=== PATIENT | female | born 1970 | race Hispanic/Latino ===

== ENCOUNTER 2018-11-26 19:30 | Emergency (ER) | payer SELFPAY ==
[2018-11-26 20:58] LABS: BASOPHILS % (AUTO) 0.6 % (0.0-5.0); EOSINOPHILS % (AUTO) 0.9 % (0.0-8.0); LYMPHOCYTES % (AUTO) 23.3 % (21.0-51.0); MEAN CORPUSCULAR HEMOGLOBIN 25.8 pg (27.0-33.0); MEAN CORPUSCULAR HGB CONC 33.1 g/dL (32.0-36.0); MEAN CORPUSCULAR VOLUME 78.2 fL (79-99); MONOCYTES % (AUTO) 5.5 % (3.0-13.0); NEUTROPHILS % (AUTO) 69.7 % (40.0-77.0); PLATELET COUNT (AUTO) 303 K/uL (130-400); RED BLOOD CELL COUNT(AUTO) 5.24 MIL/uL (4.00-5.50); RED CELL DISTRIBUTION WIDTH 16.5 % (11.0-15.5); WHITE BLOOD COUNT (AUTO) 11.1 K/uL (4.8-10.8)
[2018-11-26] MEDS ORDERED: ONDANSETRON HCL 4 MG/2 ML VIAL ONE (20:58)
[2018-11-26 21:13] LABS: CARBON DIOXIDE 23 mmol/L (21-32); CHLORIDE 102 mmol/L (101-111); CREATININE 0.9 mg/dL (0.5-1.5); GLOMERULAR FILTR. RATE CALC 71 mL/min (>60); GLUCOSE,RANDOM 393 mg/dL (70-105); POTASSIUM 4.1 mmol/L (3.5-5.1); SODIUM SERUM 137 mmol/L (136-145); UREA NITROGEN, BLOOD 20 mg/dL (7-18)
[2018-11-26 21:21] LABS: ALANINE AMINOTRANSFERASE 15 U/L (12-78); ALBUMIN 3.3 g/dL (3.5-5.0); ASPARTATE AMINOTRANSFERASE 11 U/L (10-37); BILIRUBIN,DIRECT < 0.1 mg/dL (0.0-0.3); BILIRUBIN,TOTAL 0.3 mg/dL (0.2-1.0); LIPASE 141 U/L (114-286); TOTAL PROTEIN, SERUM 8.1 g/dL (6.0-8.3)
[2018-11-26 21:44] LABS: ABG OXYGEN SATURATION 84.9 % (95.0-99.0); BASE EXCESS,VENOUS BLOOD GAS -3.1 (-2.0-3.0); HCO3,VENOUS BLOOD GAS 20.4 (21.0-28.0); PCO2,VENOUS BLOOD GAS 32 (32-45); PH,VENOUS BLOOD GAS 7.416 (7.350-7.450)
[2018-11-26] MEDS ORDERED: SODIUM CHLORIDE 0.9% 1000ML 1,000 ML IV ONE (21:54)
[2018-11-26] MEDS ORDERED: KETOROLAC TROMETHAMINE 30MG/ML ONE (22:45)
[2018-11-26 23:14] LABS: APPEARANCE,URINE Clear (CLEAR); BILIRUBIN,URINE Negative (NEGATIVE); COLOR,URINE Yellow (YELLOW); GLUCOSE, URINE (UA) >=1000 mg/dL (NEGATIVE); KETONES,URINE 40 mg/dL (NEGATIVE); LEUKOCYTE ESTERASE ,URINE Trace (NEGATIVE); NITRATE,URINE Negative (NEGATIVE); OCCULT BLOOD,URINE Negative (NEGATIVE); PROTEIN,URINE Negative (NEGATIVE); UROBILINOGEN,URINE 0.2 mg/dL (0.2-1.0)
[2018-11-26 23:22] LABS: HCG,QUAL RESULT NEGATIVE (NEGATIVE)
[2018-11-26 23:30] LABS: BACTERIA,URINE None Seen /HPF (None Seen); RBC,URINE None Seen /HPF (0-1); SQUAMOUS EPITHELIAL CELL,UR Moderate /HPF (0-2)
== END 2018-11-27 01:29 | disposition home or self-care (01) ==
LOC: EDH 19:30
DX: E11.65 Type 2 diabetes mellitus with hyperglycemia (principal); R10.84 Generalized abdominal pain; R11.2 Nausea with vomiting, unspecified; J45.909 Unspecified asthma, uncomplicated
CPT/HCPCS: 36415; 36600; 80048; 80076; 81001; 81025; 82009; 82803; 82948; 83690; 85025; 96361; 96374; 96375; 99283; J1885; J2405; J7030

== ENCOUNTER 2019-01-07 18:49 | Emergency (ER) | payer SELFPAY ==
[2019-01-07 19:57] LABS: BASOPHILS % (AUTO) 0.8 % (0.0-5.0); EOSINOPHILS % (AUTO) 0.9 % (0.0-8.0); LYMPHOCYTES % (AUTO) 14.7 % (21.0-51.0); MEAN CORPUSCULAR HEMOGLOBIN 25.9 pg (27.0-33.0); MEAN CORPUSCULAR HGB CONC 32.9 g/dL (32.0-36.0); MEAN CORPUSCULAR VOLUME 78.8 fL (79-99); MONOCYTES % (AUTO) 7.4 % (3.0-13.0); NEUTROPHILS % (AUTO) 76.2 % (40.0-77.0); PLATELET COUNT (AUTO) 237 K/uL (130-400); RED BLOOD CELL COUNT(AUTO) 4.56 MIL/uL (4.00-5.50); RED CELL DISTRIBUTION WIDTH 15.8 % (11.0-15.5); WHITE BLOOD COUNT (AUTO) 6.7 K/uL (4.8-10.8)
[2019-01-07] MEDS ORDERED: GUAIFENESIN-DM 200/20 MG 10 ML ONE (19:58)
[2019-01-07] MEDS ORDERED: BENZONATATE 100 MG CAPSULE PO ONE (19:58)
[2019-01-07 20:17] LABS: CARBON DIOXIDE 24 mmol/L (21-32); CHLORIDE 99 mmol/L (101-111); CREATININE 0.6 mg/dL (0.5-1.5); GLOMERULAR FILTR. RATE CALC 114 mL/min (>60); GLUCOSE,RANDOM 281 mg/dL (70-105); POTASSIUM 3.8 mmol/L (3.5-5.1); SODIUM SERUM 136 mmol/L (136-145); UREA NITROGEN, BLOOD 10 mg/dL (7-18)
[2019-01-07 20:19] LABS: INR 0.9 (0.85-1.15); PARTIAL THROMBOPLASTIN TIME 30.2 SEC (26.3-35.5); PROTHROMBIN TIME 9.5 SEC (9.6-11.6)
[2019-01-07 20:23] LABS: APPEARANCE,URINE Clear (CLEAR); BILIRUBIN,URINE Negative (NEGATIVE); COLOR,URINE Yellow (YELLOW); GLUCOSE, URINE (UA) >=1000 mg/dL (NEGATIVE); KETONES,URINE >=160 mg/dL (NEGATIVE); LEUKOCYTE ESTERASE ,URINE Negative (NEGATIVE); NITRATE,URINE Negative (NEGATIVE); OCCULT BLOOD,URINE Negative (NEGATIVE); PH,URINE 5.5 (5.0-8.0); PROTEIN,URINE POS 1+ (NEGATIVE)
[2019-01-07 20:31] LABS: ALANINE AMINOTRANSFERASE 22 U/L (12-78); ALBUMIN 3.4 g/dL (3.5-5.0); ASPARTATE AMINOTRANSFERASE 24 U/L (10-37); BILIRUBIN,TOTAL 0.4 mg/dL (0.2-1.0); CREATINE KINASE, TOTAL 73 U/L (21-232); MYOGLOBIN 22 ng/mL (10-92); TOTAL PROTEIN, SERUM 7.7 g/dL (6.0-8.3); TROPONIN I < 0.04 ng/mL (0.00-0.06)
[2019-01-07 20:39] LABS: YEAST,URINE BUDDING Few /HPF (None Seen)
[2019-01-07 20:41] LABS: BACTERIA,URINE Moderate /HPF (None Seen); MUCUS,URINE Few LPF (None Seen); RBC,URINE 0-1 /HPF (0-1)
[2019-01-07] MEDS ORDERED: CEFTRIAXONE SODIUM 1 GM ONE (21:31)
[2019-01-07] MEDS ORDERED: AZITHROMYCIN 250 MG TABLET PO ONE (21:32)
[2019-01-07] MEDS ORDERED: METHYLPREDNISOLONE SOD SUCC 125MG/2ML VIAL ONE (22:24)
== END 2019-01-07 22:40 | disposition home or self-care (01) ==
LOC: EDH 18:49
DX: J20.9 Acute bronchitis, unspecified (principal); J45.909 Unspecified asthma, uncomplicated; R79.1 Abnormal coagulation profile; E11.9 Type 2 diabetes mellitus without complications
CPT/HCPCS: 36415; 71045; 80053; 81001; 82550; 83605; 83874; 84484; 85025; 85610; 85730; 87040 ×2; 87077 ×2; 87088; 87186 ×2; 87804 ×2; 93005; 96361; 96374; 96375; 99284; J0696; J2930

== ENCOUNTER 2022-11-01 12:43 | Emergency (ER) | payer OTHER ==
[~2022-11-01] VITALS: Ht 154.9 cm; Wt 94.3 kg
[2022-11-01 15:10] LABS: BASOPHILS % (AUTO) 0.3 % (0.0-5.0); EOSINOPHILS % (AUTO) 0.1 % (0.0-8.0); HEMATOCRIT 46.5 % (36-48); LYMPHOCYTES % (AUTO) 14.7 % (21.0-51.0); MEAN CORPUSCULAR HEMOGLOBIN 29.9 pg (27.0-33.0); MEAN CORPUSCULAR HGB CONC 35.1 g/dL (32.0-36.0); MEAN CORPUSCULAR VOLUME 85.2 fL (79-99); NEUTROPHILS % (AUTO) 80.5 % (40.0-77.0); PLATELET COUNT (AUTO) 353 K/uL (130-400); RED BLOOD CELL COUNT(AUTO) 5.46 MIL/uL (4.00-5.50); RED CELL DISTRIBUTION WIDTH 12.4 % (11.0-15.5); WHITE BLOOD COUNT (AUTO) 14.9 K/uL (4.8-10.8)
[2022-11-01 15:42] LABS: CREATININE 1.6 mg/dL (0.5-1.5); POTASSIUM 3.6 mmol/L (3.5-5.1)
[2022-11-01 15:47] LABS: ALBUMIN 3.7 g/dL (3.5-5.0); TOTAL PROTEIN, SERUM 8.7 g/dL (6.0-8.3)
[2022-11-01] MEDS ORDERED: CEPH500B PO (16:22)
[2022-11-01] MEDS ORDERED: ACYC200C24 PO (16:22)
[2022-11-01 16:35] VITALS: BP 155/70
== END 2022-11-01 16:36 | disposition home or self-care (01) ==
LOC: EDH 12:43
DX: A60.00 Herpesviral infection of urogenital system, unspecified (principal); E11.9 Type 2 diabetes mellitus without complications
CPT/HCPCS: 36415; 80053; 85025

== ENCOUNTER 2023-12-21 11:37 | Emergency (ER) | payer BC ==
[~2023-12-21] VITALS: Ht 154.9 cm; Wt 89.8 kg
[~2023-12-21 11:37] MED LIST: ACYC200C24 PO; CEPH500B PO
[2023-12-21 13:38] LABS: BASOPHILS # (AUTO) 0.04 K/uL (0.00-0.20); BASOPHILS % (AUTO) 0.4 % (0.0-5.0); EOSINOPHILS # (AUTO) 0.08 K/uL (0.00-0.70); EOSINOPHILS % (AUTO) 0.8 % (0.0-8.0); HEMATOCRIT 40.3 % (36-48); IMMATURE GRANULOCYTE ABSOLUTE 0.02 K/uL (0-1); LYMPHOCYTES # (AUTO) 2.9 K/uL (1.0-4.8); LYMPHOCYTES % (AUTO) 30.3 % (21.0-51.0); MEAN CORPUSCULAR HEMOGLOBIN 30.1 pg (27.0-33.0); MEAN CORPUSCULAR VOLUME 85.9 fL (79-99); MONOCYTES # (AUTO) 0.5 K/uL (0.1-1.0); MONOCYTES % (AUTO) 4.8 % (3.0-13.0); NEUTROPHILS % (AUTO) 63.5 % (40.0-77.0); PLATELET COUNT (AUTO) 248 K/uL (130-400); RED BLOOD CELL COUNT(AUTO) 4.69 MIL/uL (4.00-5.50); RED CELL DISTRIBUTION WIDTH 13.3 % (11.0-15.5); WHITE BLOOD COUNT (AUTO) 9.5 K/uL (4.8-10.8)
[2023-12-21 13:47] LABS: CREATININE 0.8 mg/dL (0.5-1.5); POTASSIUM 4.4 mmol/L (3.5-5.1)
[2023-12-21 13:53] LABS: ALBUMIN 3.2 g/dL (3.5-5.0); BILIRUBIN,TOTAL 0.4 mg/dL (0.2-1.0); TOTAL PROTEIN, SERUM 7.5 g/dL (6.0-8.3)
[2023-12-21 13:55] LABS: APPEARANCE,URINE CLEAR (CLEAR); BILIRUBIN,URINE NEGATIVE (NEGATIVE); COLOR,URINE LIGHT-YELLOW (YELLOW); GLUCOSE, URINE (UA) >=1000 mg/dL (NEGATIVE); KETONES,URINE NEGATIVE (NEGATIVE); LEUKOCYTE ESTERASE ,URINE NEGATIVE Leu/uL (NEGATIVE); NITRATE,URINE NEGATIVE (NEGATIVE); OCCULT BLOOD,URINE LARGE (NEGATIVE); PROTEIN,URINE NEGATIVE (NEGATIVE); UROBILINOGEN,URINE 0.2 mg/dL (0.2-1.0)
[2023-12-21 13:56] LABS: ADD UA MICROSCOPIC YES
[2023-12-21] MEDS: 0.9%NACL 1000ML 1,000 ML IV ONE (13:58)
[2023-12-21] MEDS: MORPHINE 2 MG SYG IVP ONE (13:58)
[2023-12-21] MEDS: ONDANSETRON 4MG INJ IVP ONE (13:58)
[2023-12-21 14:04] LABS: RBC,URINE 51-100 /HPF (0-1); SQUAMOUS EPITHELIAL CELL,UR FEW /HPF (0-2)
[2023-12-21] MEDS ORDERED: IOHEXOL-350 75 ML VIAL IV ONE (15:18)
[2023-12-21 16:59] VITALS: BP 161/84; PULSE 66; RESP 18; O2SAT 100
[2023-12-21 17:29] LABS: INFLUENZA TYPE A Negative For Type A (NEGATIVE); INFLUENZA TYPE B Negative For Type B (NEGATIVE)
[2023-12-21 17:41] LABS: SARS-CoV-2, RNA, NAAT NEGATIVE SARS CoV-2 (NEGATIVE)
[2023-12-21] MEDS ORDERED: POLY17PO4 PO (17:45)
== END 2023-12-21 18:04 | disposition home or self-care (01) ==
LOC: EDH 11:37
DX: K59.00 Constipation, unspecified (principal); E11.9 Type 2 diabetes mellitus without complications; Z20.822 Contact with and (suspected) exposure to COVID-19; Z79.899 Other long term (current) drug therapy; Z98.890 Other specified postprocedural states
CPT/HCPCS: 99284; 74177; 96374; 87635; 96361; 96375; 80053; 83690; 85025; 87804 ×2; 81001; 36415; J2270; J7030; J2405; Q9967

== ENCOUNTER 2025-03-28 20:58 | Emergency (ER) | payer BC ==
[~2025-03-28] VITALS: Ht 154.9 cm; Wt 86.2 kg
[~2025-03-28 20:58] MED LIST changes: +POLY17PO4 PO
[2025-03-28 21:47] LABS: BASOPHILS # (AUTO) 0.04 K/uL (0.00-0.20); BASOPHILS % (AUTO) 0.5 % (0.0-5.0); EOSINOPHILS # (AUTO) 0.11 K/uL (0.00-0.70); EOSINOPHILS % (AUTO) 1.5 % (0.0-8.0); HEMATOCRIT 40.5 % (36-48); IMMATURE GRANULOCYTE ABSOLUTE 0.02 K/uL (0-1); LYMPHOCYTES # (AUTO) 2.9 K/uL (1.0-4.8); LYMPHOCYTES % (AUTO) 39.8 % (21.0-51.0); MEAN CORPUSCULAR HEMOGLOBIN 30.2 pg (27.0-33.0); MEAN CORPUSCULAR VOLUME 83.7 fL (79-99); MONOCYTES # (AUTO) 0.4 K/uL (0.1-1.0); MONOCYTES % (AUTO) 5.2 % (3.0-13.0); NEUTROPHILS # (AUTO) 3.9 K/uL (1.8-7.7); NEUTROPHILS % (AUTO) 52.7 % (40.0-77.0); PLATELET COUNT (AUTO) 261 K/uL (130-400); RED BLOOD CELL COUNT(AUTO) 4.84 MIL/uL (4.00-5.50); RED CELL DISTRIBUTION WIDTH 12.6 % (11.0-15.5); WHITE BLOOD COUNT (AUTO) 7.3 K/uL (4.8-10.8)
--- NOTE | 2025-03-28 21:49 | EKG ---
[facility] Test Date: 2025-03-28 Test Time: 21:46:52 Pat Name: SHUN MARTINO Department: ED Room: Gender: F [employer] Offbearer: [id number] : 1970 Requested By: FAYE CHAUDHARY Order Number: [id number] Reading MD: Jerome Alberto Measurements Intervals [place] Rate: 71 P: 32 PA: 140 QRS: 6 QRSD: 84 T: 5 QT: 394 QTc: 430 Interpretive Statements Sinus rhythm Probable left atrial enlargement Probable left ventricular hypertrophy Compared to ECG 01/07/2019 19:29:27 Sinus tachycardia no longer present Electronically Signed On 03-29-2025 22:16:45 CDT by Jerome Alberto Please click the below link to view image of tracing.
[2025-03-28 21:58] LABS: CREATININE 0.8 mg/dL (0.5-1.0); POTASSIUM 3.5 mmol/L (3.5-5.1)
[2025-03-28 22:13] LABS: ALBUMIN 3.5 g/dL (3.5-5.0); BILIRUBIN,DIRECT 0.2 mg/dL (0.0-0.3); BILIRUBIN,TOTAL 0.9 mg/dL (0.2-1.0); TOTAL PROTEIN, SERUM 7.9 g/dL (6.0-8.3)
[2025-03-28] MEDS: 0.9%NACL 1000ML 1,000 ML IV ONE (22:23)
[2025-03-28] MEDS: ondanSETRON 4MG INJ IVP ONE (22:23)
[2025-03-28] MEDS: PANTOPrazole 40 MG/VIAL IVP ONE (22:23)
--- NOTE | 2025-03-28 22:33 | HMCIMG ---
CT HEAD/BRAIN W/O CONTRAST HISTORY: Headaches COMPARISON: None TECHNIQUE: Multiple sequential axial images of the head were obtained from the base of the skull through vertex. Patient was not given contrast through intravenous route. FINDINGS: The ventricles and extraventricular CSF spaces are nondilated for patient's age. There is no midline shift, mass effect or herniation. No acute intracranial bleed is seen. Visualized portion of the paranasal sinuses are grossly within normal limits. IMPRESSION: 1. No acute intracranial bleed is seen. CT was performed with one or more following dose reduction techniques: automated exposure control, adjustment of the mA and kv according to patient's size, or use of a iterative reconstruction technique.
[2025-03-28 23:06] LABS: COVID19 (SARS ANTIGEN RAPID) PRESUMPTIVE NEGATIVE (NEGATIVE); INFLUENZA TYPE A Negative For Type A (NEGATIVE); INFLUENZA TYPE B Negative For Type B (NEGATIVE)
[2025-03-28] MEDS: hydrALAZine 20MG/ML VIAL IV ONE (23:10)
[2025-03-28] MEDS: guaiFENesin-coDEINE 5 ML SYRUP PO ONE (23:40)
[2025-03-29 00:18] LABS: APPEARANCE,URINE CLOUDY (CLEAR); BILIRUBIN,URINE NEGATIVE (NEGATIVE); COLOR,URINE YELLOW (YELLOW); GLUCOSE, URINE (UA) >=1000 mg/dL (NEGATIVE); KETONES,URINE 20 mg/dL (NEGATIVE); LEUKOCYTE ESTERASE ,URINE 500 Leu/uL (NEGATIVE); NITRATE,URINE NEGATIVE (NEGATIVE); PH,URINE 5.5 (5.0-8.0); PROTEIN,URINE 20 mg/dL (NEGATIVE); UROBILINOGEN,URINE 0.2 mg/dL (0.2-1.0)
[2025-03-29 00:19] LABS: ADD UA MICROSCOPIC YES
[2025-03-29 00:20] LABS: MUCUS,URINE FEW LPF (None Seen); RBC,URINE 26-50 /HPF (0-1); SQUAMOUS EPITHELIAL CELL,UR MANY /HPF (0-2); YEAST,URINE BUDDING MANY /HPF (None Seen)
[2025-03-29] MEDS: cefTRIAXone 1G VIAL IVPB ONE (00:34)
[2025-03-29] MEDS ORDERED: NITR100C4 PO (00:47)
--- NOTE | 2025-03-29 00:47 | ERN ---
ED Note History of Present Illness Stated Complaint: MULTIPLE COMPLAINTS Chief Complaint: Multiple Complaints Time Seen by MD: 21:01 Time Seen by Midlevel: 21:01 Dictation: The patient is a 54-year-old female with a history of diabetes, asthma who pres ents to the emergency department with multiple complaints. Patient reports that she has been having a chronic cough for about a month, today she started with a right upper abdominal burning sensation with nausea, nonbloody vomiting, nonbloody diarrhea. Patient also reports that she was seen here on March 16 for the same problem. Reports during that time her right eye was swollen. Patient reports that her eye swelling is getting better but she still has some droopiness to her right eye. Patient also reports right-sided headache. Denies any fevers. Reports compliant with her medication. Denies any head trauma or falls. Allergies: Coded Allergies: No Known Drug Allergies (Unverified Allergy, Unknown, 11/01/22) Home Meds Active Scripts Polyethylene Glycol 3350 (Miralax) 17 Gram Powd.pack, 17 GM PO DAILY, #5 EA Prov:PIOTR GARCIA CUSTOMER LOGISTICS MANAGER 12/21/23 Cephalexin Monohydrate (Keflex) 500 Mg Cap, 500 MG PO TID for 7 Days, #21 CAP Prov:ERYN RIOS MD 11/01/22 Acyclovir (Acyclovir) 200 Mg Capsule, 200 MG PO 5XDAY for 10 Days, #50 CAP Prov:ERYN RIOS MD 11/01/22 Past Medical History Past Medical History: Diabetes-Type II Surgical History: Other Surgical History Other: JAW Family History: Negative Social History: Negative, Lives with family History: Not Applicable RN Note Reviewed/Agreed w/PFSH: Yes Review of System Dictation Constitutional: Negative for fever,chills, and weight loss Eyes: Negative for injury, pain,redness, and discharge ENT: Negative for injury,pain or swelling Cardiovascular: Negative for chest pain, palpitations, and edema Respiratory: Negative for shortness of breath, , and wheezing, positive for cough Abdomen/GI: Negative for constipation positive for abdominal pain, nausea, vomiting, diarrhea, and Back: Negative for injury and pain : Negative for injury, bleeding and discharge MS/Extremity: Negative for injury and deformity Skin: Negative for rash, and discoloration Neuro: Negative for weakness, numbness, tingling, and seizure positive for headache Psych: Negative for suicide ideation, homicidal ideation, and hallucinations Initial Vital Sign VS Vital Signs Date Time Temp Pulse Resp B/P (MAP) Pulse Ox O2 Delivery O2 Flow Rate FiO2 03/28/25 20:59 98.4 97 20 200/119 96 Room Air 03/28/25 22:48 0 21 Physical Exam Dictation Vital Signs reviewed General Appearance: Alert, oriented x 3, no acute distress, well developed, nourished. Head and Face: non-traumatic. Eyes: PERRL, pink conjunctivas, eyelid no trauma, anterior chamber with arcus senilis. Ears: Pinnas intact and no signs of trauma or erythema ear canals clear and no discharge TM no erythema Nose: No discharge, no bleeding. Oropharynx: Mouth normal, tongue pink. pharynx clear,no erythema, tonsils no exudates, no abscesses noted, mucous membrane moist Neck: Supple, non-tender, no thyromegaly, no masses, no JVD, no bruits Breast:Deferred Chest:No tenderness, no crepitus, no paradoxical movement, no retractions Lungs:Clear, well-ventilated, symmetric, no rales, no wheezing, no rhonchi, no stridor, good breath sounds bilaterally Heart: Regular rate, regular rhythm, no murmur, no gallops Vascular: no peripheral edema, Abdomen: Soft, positive bowel sounds, nondistended, no guarding, nontender, no rebound, no masses no hepatomegaly, no splenomegaly, no Monteiro's sign, no hernias. Rectal: Deferred Genital: Deferred Neurological: Normal speech, motor function intact, sensory function intact Musculoskeletal: Neck nontender, full range of motion, back nontender, full range of motion, Extremities: nontender, full range of motion Skin: Color pink, dry, no turgor, no rash, no lacerations, no abrasions, no contusions. Lymphatic: Deferred Results (Laboratory/Radiology) Laboratory/Radiology Laboratory Tests Test 03/28/25 21:40 03/28/25 22:37 03/29/25 00:07 03/29/25 00:18 White Blood Count 7.3 K/uL (4.8-10.8) Red Blood Count 4.84 MIL/uL (4.00-5.50) Hemoglobin 14.6 g/dL (12.0-16.0) Hematocrit 40.5 % (36-48) Mean Corpuscular Volume 83.7 fL (79-99) Mean Corpuscular Hemoglobin 30.2 pg (27.0-33.0) Mean Corpuscular Hemoglobin Concent 36.0 g/dL (32.0-36.0) Red Cell Distribution Width 12.6 % (11.0-15.5) Platelet Count 261 K/uL (130-400) Mean Platelet Volume 10.9 fL (7.5-10.5) H Immature Granulocyte % (Auto) 0.3 % (0-1) Neutrophils (%) (Auto) 52.7 % (40.0-77.0) Lymphocytes (%) (Auto) 39.8 % (21.0-51.0) Monocytes (%) (Auto) 5.2 % (3.0-13.0) Eosinophils (%) (Auto) 1.5 % (0.0-8.0) Basophils (%) (Auto) 0.5 % (0.0-5.0) Neutrophils # (Auto) 3.9 K/uL (1.8-7.7) Lymphocytes # (Auto) 2.9 K/uL (1.0-4.8) Monocytes # (Auto) 0.4 K/uL (0.1-1.0) Eosinophils # (Auto) 0.11 K/uL (0.00-0.70) Basophils # (Auto) 0.04 K/uL (0.00-0.20) Absolute Immature Granulocyte (auto 0.02 K/uL (0-1) Nucleated Red Blood Cells 0.0 % (0.0-0.19) Sodium Level 138 mmol/L (136-145) Potassium Level 3.5 mmol/L (3.5-5.1) Chloride Level 105 mmol/L (101-111) Carbon Dioxide Level 25 mmol/L (21-32) Blood Urea Nitrogen 20 mg/dL (7-18) H Creatinine 0.8 mg/dL (0.5-1.0) Glomerular Filtration Rate Calc 88 mL/min (>90) Random Glucose 245 mg/dL (70-105) H Total Calcium 9.4 mg/dL (8.5-10.1) Total Bilirubin 0.9 mg/dL (0.2-1.0) Direct Bilirubin 0.2 mg/dL (0.0-0.3) Aspartate Amino Transf (AST/SGOT) 17 U/L (10-37) Alanine Aminotransferase (ALT/SGPT) 25 U/L (12-78) Alkaline Phosphatase 114 U/L (50-136) Total Creatine Kinase 34 U/L (21-232) # Troponin I High Sensitivity 6 ng/L (4-50) Total Protein 7.9 g/dL (6.0-8.3) Albumin 3.5 g/dL (3.5-5.0) Lipase 23 U/L (16-77) Influenza Type A Antigen Negative For Type A Influenza Type B Antigen Negative For Type B SARS-CoV-2 Antigen (Rapid) PRESUMPTIVE NEGATIVE Urine Color YELLOW (YELLOW) Urine Appearance CLOUDY (CLEAR) H Urine pH 5.5 (5.0-8.0) Urine Specific [place] 1.023 (1.001-1.031) Urine Protein 20 mg/dL (NEGATIVE) H Urine Glucose (UA) >=1000 mg/dL (NEGATIVE) H Urine Ketones 20 mg/dL (NEGATIVE) H Urine Occult Blood +- (TRACE) (NEGATIVE) H Urine Nitrate NEGATIVE (NEGATIVE) Urine Bilirubin NEGATIVE mg/dL (NEGATIVE) Urine Urobilinogen 0.2 mg/dL (0.2-1.0) Urine Leukocyte Esterase 500 Robe/uL (NEGATIVE) H Urine RBC 26-50 /HPF (0-1) H Urine WBC 11-25 /HPF (0-1) H Urine Squamous Epithelial Cells MANY /HPF (0-2) Urine Bacteria None /HPF (None Seen) Urine Yeast MANY /HPF (None Seen) Whole Blood Glucose 208 MG/DL (70-110) H SERVICE 28 REASON: headache ORDERING PHYSICIAN: FAYE CHAUDHARY PROCEDURE: HEAD WO - CT HEAD/BRAIN W/O CONTRAST CT HEAD/BRAIN W/O CONTRAST HISTORY: Headaches COMPARISON: None TECHNIQUE: Multiple sequential axial images of the head were obtained from the base of the skull through vertex. Patient was not given contrast through intravenous route. FINDINGS: The ventricles and extraventricular CSF spaces are nondilated for patient's age. There is no midline shift, mass effect or herniation. No acute intracranial bleed is seen. Visualized portion of the paranasal sinuses are grossly within normal limits. IMPRESSION: 1. No acute intracranial bleed is seen. CT was performed with one or more following dose reduction techniques: automated exposure control, adjustment of the mA and kv according to patient's size, or use of a iterative reconstruction technique. Labs Reviewed?: Yes EKG: (+) rhythm (Sinus rhythm) EKG Comment: Date:03/28/2025 Time:2124 Ventricular rate:71 GA interval:140 QRS duration:84 QT/QTc:394 EKG interpretation: Sinus rhythm Reviewed by ED Attending ED Course ED Course Orders Procedure Category Date Status Time Cbc With Differential LAB 03/28/25 Complete 21: Troponin I High LAB 03/28/25 Complete Sensitivity 21:29 Urinalysis Profile LAB 03/28/25 Complete 21:29 Us Abdominal Ruq\Ltd US 03/28/25 Taken 21:29 12 Lead Ekg Tracing- EKG 03/28/25 Complete Technical 21:29 0.9%Nacl 1000ml (Ns PHA 03/28/25 Complete 1000ml) 21:30 Ondansetron 4mg Inj PHA 03/28/25 Complete (Zofran 4mg Inj) 21:30 Pantoprazole 40mg Inj PHA 03/28/25 Complete (Protonix 40mg Inj 21:30 Creatine Kinase, Total LAB 03/28/25 Complete 21:29 Chest 1vw RAD 03/28/25 Taken 21:29 Lipase LAB 03/28/25 Complete 21:29 Basic Metabolic Panel LAB 03/28/25 Complete 21:29 Hepatic Function Panel LAB 03/28/25 Complete 21:29 Covid19 (Sars Antigen LAB 03/28/25 Complete Rapid) 21:29 Influenza Type A & B, LAB 03/28/25 Complete Rapid 21:29 Ct Head/Brain W/O CT 03/28/25 Resulted Contrast 21:29 Hydralazine 20mg Inj PHA 03/28/25 Complete (Apresoline 20mg In 23:00 Guaifenesin-Codeine PHA 03/29/25 Complete Syrup 5ml (Robitussi 00:00 Bedside Glucose CPOE 03/29/25 Transmitted Fingerstick 00:14 Culture Urine GEMA 03/29/25 In Process 00:19 Ceftriaxone 1g Vial PHA 03/29/25 Complete (Rocephine 1g Inj) 00:30 Current Medications Medications (Trade) Dose Ordered Sig/Tru Route PRN Reason Start Time Stop Time Status Last Admin Dose Admin Ceftriaxone Sodium (ROCEphine 1G INJ) 1 gm ONCE ONCE IVPB 03/29/25 00:30 03/29/25 00:31 DC 03/29/25 00:34 Guaifenesin/ Codeine Phosphate (RobiTUSSin AC 5 ML SYRUP) 5 ml ONCE ONCE PO 03/29/25 00:00 03/29/25 00:01 DC 03/28/25 23:40 Hydralazine HCl (APRESOLine 20MG INJ) 10 mg ONCE ONCE IV 03/28/25 23:00 03/28/25 23:02 DC 03/28/25 23:10 Ondansetron HCl (zoFRAN 4MG INJ) 4 mg ONCE ONCE IVP 03/28/25 21:30 03/28/25 21:31 DC 03/28/25 22:23 Pantoprazole Sodium (PROTonix 40MG INJ) 40 mg ONCE ONCE IVP 03/28/25 21:30 03/28/25 21:31 DC 03/28/25 22:23 Sodium Chloride 1,000 ml @ 0 mls/hr ONCE ONCE IV 03/28/25 21:30 03/28/25 21:31 DC 03/28/25 22:23 Vital Signs Date Time Temp Pulse Resp B/P (MAP) Pulse Ox O2 Delivery O2 Flow Rate FiO2 03/28/25 23:55 73 18 162/82 100 Room Air* 0 21 03/28/25 23:23 77 18 177/78 100 Room Air* 0 21 03/28/25 22:48 73 19 208/95 100 Room Air* 0 21 03/28/25 20:59 98.4 97 20 200/119 96 Room Air Medical Decision Making MDM The patient is a 54-year-old female with a history of diabetes, asthma who presents to the emergency department with multiple complaints. Patient reports that she has been having a chronic cough for about a month, today she started with a right upper abdominal burning sensation with nausea, nonbloody vomiting, nonbloody diarrhea. Patient also reports that she was seen here on March 16 for the same problem. Reports during that time her right eye was swollen. Patient reports that her eye swelling is getting better but she still has some droopiness to her right eye. Patient also reports right-sided headache. Denies any fevers. Reports compliant with her medication. Denies any head trauma or falls. CBC showed no leukocytosis, no anemia, chemistry showed mild hypoglycemia, no other electrolyte imbalance, urinalysis positive for leukocyte esterase. Patient will be giving Rocephin and discharged on antibiotics. Serology negative. Chest x-ray revealed no obvious infiltrates, CT head showed no acute pathology, ultrasound showed no gallstones. Patient reports feeling better after IV fluids. Patient is currently only complaints of a nonproductive cough. Mild droopiness to her right eye but patient is able to open and close it. Patient was seen here on March 16 and was diagnosed with a an upper respiratory infection and discharged on doxycycline and amoxicillin which patient reports she completed the treatment. On physical exam patient is in no acute distress, blood pressure improved. Neurologically intact. Patient instructed to follow up with primary doctor in 1-2 days. Patient instructed to return if symptoms worsen. Patient also instructed to follow up with primary doctor about blood pressure management. Patient reports her blood pressure is not usually elevated at home. Differential diagnosis: Intracerebral mass, intracerebral hemorrhage, upper respiratory infection, pneumonia, viral illness Need for hospitalization: Patient does not meet criteria for hospitalization. There are no social concerns with this patient. DX & DISP Disposition: Discharge Departure Impression: Primary Impression: Viral URI with cough Additional Impressions: Gastroenteritis, Elevated blood pressure reading, Urinary tract infection Condition: Stable Scripts Nitrofurantoin Monohyd/M-Cryst (Macrobid 100 mg Capsule) 100 Mg Capsule 1 CAP PO BID for 5 Days, #10 CAP 0 Refills Prov: FAYE CHAUDHARY [facility] 03/29/25 Additional Instructions: Please follow up with your primary doctor in 1-2 days. Take your medications as prescribed. If symptoms worsen, you develop severe headache, vomiting or if anything worsen please return to ER. FOLLOW-UP WITH PRIMARY CARE PROVIDER IN 1 TO 2 DAYS. TAKE MEDICATIONS DIRECTED HERE IN THE EMERGENCY ROOM. OKAY TO CONTINUE HOME MEDICATIONS UNLESS OTHERWISE DISCUSSED DURING YOUR VISIT IN THE EMERGENCY ROOM TODAY. RETURN TO YOUR NEAREST EMERGENCY ROOM IF SYMPTOMS WORSEN OR IF THERE IS NO IMPROVEMENT. CALL 911 IF YOU NEED IMMEDIATE ASSISTANCE. TAKE TYLENOL OR MOTRIN [id number] NEEDED AND IF NO CONTRAINDICATIONS ARE PRESENT. INCREASE ORAL HYDRATION. A WOUND CULTURE OR URINE CULTURE WAS ORDERED HERE IN THE EMERGENCY ROOM DEPARTMENT PLEASE FOLLOW-UP WITH PRIMARY CARE PROVIDER AND ADVISE THEM TO GET REPEAT PORTS FROM OUR FACILITY. IF YOU HAD ANY RENE WRAP/SPLINTS THAT WERE APPLIED HERE, PLEASE DO NOT REMOVE THEM UNTIL YOU SEE YOUR PRIMARY CARE OR SPECIALTY. Referrals: SELF,REFERRAL (PCP) Time of Disposition: 00:45 I have reviewed the case, and I agree with, Diagnosis and Plan FAYE CHAUDHARY CUSTOMER LOGISTICS MANAGER Mar 29, 2025 00:47
[2025-03-29 00:50] VITALS: BP 157/79; PULSE 75; RESP 18; TEMP 98.4; O2SAT 100
--- NOTE | 2025-03-29 10:03 | HMCIMG ---
CHEST 1VW REASON: cough COMPARISON: 01/07/2019 FINDINGS: Single view of the chest was obtained. Lungs are clear. Heart size is normal. There is no pulmonary vascular congestion. Mediastinum and bony thorax appear unremarkable. IMPRESSION: 1. Normal single view chest x-ray.
--- NOTE | 2025-03-29 10:06 | HMCIMG ---
US ABDOMINAL RUQ\E\LTD HISTORY: Adominal Pain COMPARISON: None FINDINGS: There is moderate fatty infiltration of the liver. There are no focal liver masses. The liver is not enlarged.There is a normal-appearing gallbladder. Common duct is normal. Right kidney is normal with no evidence of mass, hydronephrosis or stone.The pancreas is obscured by overlying bowel gas. IMPRESSION: 1. Moderate fatty infiltration of the liver which measures 17 cm. 2. Otherwise unremarkable exam although the pancreas was not visualized.
== END 2025-03-29 00:58 | disposition home or self-care (01) ==
LOC: EDH 20:58
DX: J06.9 Acute upper respiratory infection, unspecified (principal); K52.9 Noninfective gastroenteritis and colitis, unspecified; N39.0 Urinary tract infection, site not specified; E11.9 Type 2 diabetes mellitus without complications; R04.0 Epistaxis; B97.89 Other viral agents as the cause of diseases classified elsewhere; R05.9 Cough, unspecified; Z20.822 Contact with and (suspected) exposure to COVID-19
CPT/HCPCS: 99285; 96374; 70450; 76705; 96375 ×2; 71045; 87426; 82550; 80076; 84484; 80048; 83690; 85025; 87086 ×2; 87186; 87804 ×2; 82948; 81001; 36415; 93005; J7030; J0360; J2405; J2470; J0696